=== PATIENT | female | born 1955 ===

== ENCOUNTER 2017-06-30 07:09 | Day surgery (SDC) | payer SELFPAY ==
[2017-06-30 07:43] VITALS: BMI 26.9
[2017-06-30 08:20] LABS: BASO % 0.6 % (0.0-2.0); EOS # 0.1 K/uL (0.0-0.7); EOS % 2.4 % (0.0-4.0); HEMOGLOBIN 12.4 g/dL (12.0-16.0); LYMPH # 2.5 K/uL (1.0-4.3); MEAN CELL VOLUME 89.4 fl (81.0-99.0); MEAN CORPUSCULAR HEMOGLOBIN 29.3 pg (27.0-31.0); MEAN CORPUSCULAR HGB CONC 32.8 g/dL (33.0-37.0); MEAN PLATELET VOLUME 7.6 fl (7.2-11.7); MONO # 0.6 K/uL (0.0-0.8); MONO % 9.6 % (0.0-10.0); NEUT # 2.9 K/uL (1.8-7.0); NEUT % 46.4 % (50.0-75.0); NRBC % 0.2 % (0.0-0.0); RBC 4.24 Mil/uL (3.80-5.20); RED CELL DISTRIBUTION WIDTH 14.5 % (11.5-14.5); WHITE BLOOD COUNT 6.2 K/uL (4.8-10.8)
[2017-06-30 08:32] LABS: PARTIAL THROMBOPLASTIN TIME 32.9 Seconds (25.6-37.1)
[2017-06-30] MEDS ORDERED: Lidocaine 1% Inj (20ml) ONE (09:35)
--- NOTE | 2017-06-30 09:50 | CP.SDSHP ---
Same Day Surgery H & P - History Proposed Procedure: US Guided Thyroid FNA Pre-Op Diagnosis: thyroid nodules - Allergies Allergies: Allergies No Known Allergies Allergy (Verified 06/30/17 07:43) - Physical Exam Vital Signs: Vital Signs 06/30/17 09:32 Temperature 97.7 F Pulse Rate 74 Respiratory 18 Rate Blood Pressure 136/67 - Impression Impression: 61 yo female w/ enlarging right mid/upper pole thyroid nodule; plan us guided thryoid fna - Date & Time Date: 06/30/17 Time: 09:20 Short Stay Discharge - Short Stay Discharge Admitting Diagnosis/Reason for Visit: ED5.20 Disposition: HOME/ ROUTINE Referrals: Bill Whittaker MD [Primary Care Provider] -
--- NOTE | 2017-06-30 09:51 | PCM.SURG1 ---
Surgeon's Initial Post Op Note - Surgeon's Notes Surgeon: Brian Unger MD [employer] Crew Chief: None Type of Anesthesia: Local Pre-Operative Diagnosis: Thyroid Nodules Operative Findings: Large mixed cystic and solid right mid/upper pole nodule Post-Operative Diagnosis: same Operation Performed: US Guided Thyroid FNA x1 Specimen/Specimens Removed: FNA right mid/upper pole nodule Estimated Blood Loss: EBL {In ML}: 0 Date of Surgery/Procedure: 06/30/17 Time of Surgery/Procedure: 09:45
--- NOTE | 2017-06-30 11:23 | US ---
PROCEDURE: ULTRASOUND-GUIDED THYROID BIOPSY CLINICAL HISTORY: 61-year-old female with suspicious thyroid nodules is referred to Interventional Radiology for ultrasound-guided thyroid FNA. COMPARISON: Thyroid ultrasound dated 05/18/2017. PROCEDURE: 1. Ultrasound-guided thyroid FNA x1. PRE-PROCEDURE FINDINGS: 1. Right mid/ upper pole mixed cystic and solid nodule. POST-PROCEDURE FINDINGS: 1. No evidence of post-procedural complication. INTERVENTIONAL RADIOLOGIST: Brian Unger M.D. (the attending was present for the entire procedure.) ANESTHESIA: None. MEDICATION: Lidocaine 1% for local subcutaneous analgesia. COMPLICATIONS: None. PROCEDURE DESCRIPTION AND FINDINGS: The risks, benefits, alternatives and possible complications of the procedure were fully discussed; all questions were answered and informed consent was obtained. The patient was brought into the interventional suite and a pre-procedure 'time-out' was performed. The patient was placed on the ultrasound table in the supine position and the neck was passively extended. The anterior neck was prepped and draped in the usual sterile fashion. Maximum sterile barrier precautions were maintained throughout the entire procedure. Preliminary focused ultrasound images of the thyroid demonstrate the previously identified nodule referred for biopsy. Following subcutaneous infiltration of lidocaine 1% for local analgesia, under ultrasound guidance, utilizing separate needles, multiple fine needle aspirations were performed of the right mid/ upper pole thyroid nodule, with real-time visualization of needle entry. The ultrasound images were permanently recorded and sent to the PACS. Adequate hemostasis was achieved utilizing manual compression. A sterile adhesive dressing was applied over the puncture site. The patient tolerated the procedure well without immediate post-procedure complications and was discharged home in stable condition. IMPRESSION: Successful ultrasound-guided fine needle aspiration of the right mid/upper pole thyroid nodule.
[2017-06-30 11:58] VITALS: O2SAT 99
[2017-06-30 12:07] VITALS: BP 124/63; PULSE 61; RESP 20; TEMP 98
== END 2017-06-30 11:15 | disposition home or self-care (01) ==
LOC: H.OPSURG 07:09
PROVIDERS: ATTEND Internal Medicine Endocrinology, Diabetes & Metabolism
DX: E05.20 Thyrotoxicosis with toxic multinodular goiter without thyrotoxic crisis or storm (principal)